=== PATIENT | male | born 1965 | race Caucasian/White ===

== ENCOUNTER 2024-05-12 09:37 | Emergency (ER) | payer BC ==
[~2024-05-12] VITALS: Ht 167.6 cm; Wt 76.2 kg
[2024-05-12] MEDS ORDERED: DEXAMETHASONE SODIUM PHOSPHATE 4 MG/ML VIAL IM STA (10:58)
[2024-05-12] MEDS ORDERED: ORPHENADRINE CITRATE 30 MG/ML AMPUL IM STA (10:58)
[2024-05-12] MEDS ORDERED: ORPHENADRINE CITRATE 30 MG/ML AMPUL ONE (11:11)
[2024-05-12] MEDS ORDERED: DEXAMETHASONE SODIUM PHOSPHATE 4 MG/ML VIAL ONE (11:11)
== END 2024-05-12 11:22 | disposition home or self-care (01) ==
LOC: ER 09:38
DX: M72.2 Plantar fascial fibromatosis (principal)